=== PATIENT | female | born 1990 | race Two or more races ===

== ENCOUNTER 2022-02-02 12:12 | Emergency (ER) | payer MEDICAID ==
[~2022-02-02] VITALS: Ht 162.6 cm; Wt 54.5 kg
[2022-02-02 14:30] VITALS: BP 115/69
[2022-02-02] MEDS ORDERED: IBUP600T27 PO (14:40)
[2022-02-02] MEDS ORDERED: CEPH-509 PO (14:40)
[2022-02-02] MEDS ORDERED: IBUPROFEN 600 MG TAB PO ONE (14:45)
== END 2022-02-02 14:58 | disposition home or self-care (01) ==
LOC: ER 12:12
DX: S93.401A Sprain of unspecified ligament of right ankle, initial encounter (principal); L08.9 Local infection of the skin and subcutaneous tissue, unspecified; Z90.49 Acquired absence of other specified parts of digestive tract; Z79.1 Long term (current) use of non-steroidal anti-inflammatories (NSAID); Z79.899 Other long term (current) drug therapy; X50.1XXA Overexertion from prolonged static or awkward postures, initial encounter; Y93.89 Activity, other specified; Y92.89 Other specified places as the place of occurrence of the external cause; Y99.8 Other external cause status
CPT/HCPCS: 73610; 73630